=== PATIENT | female | born 1985 | race Caucasian/White ===

== ENCOUNTER 2018-04-26 10:08 | Outpatient (CLI) | payer OTHER ==
--- NOTE | 2018-04-29 09:41 | Mammography Report ---
Reason: SCREENING MAMMO Procedure Date: 04/26/2018 Accession Number: [id number] / [id number] Procedure: MGN - Screening Mammo Dig Bilat CPT Code: FULL RESULT: EXAM: Screening Mammo Dig Bilat DATE: 04/26/2018 10:24 AM CLINICAL HISTORY: Screening encounter. History of nulliparity and early menses. Family history of breast cancer in the mother at age 69. TECHNIQUE: Bilateral CC and MLO views were obtained. COMPARISON: This is the baseline mammogram. FINDINGS: The breasts demonstrate heterogeneously dense fibroglandular parenchyma bilaterally. No suspicious masses, clustered microcalcifications, or regions of architectural distortion are identified. IMPRESSION: Negative examination RECOMMENDATION: Routine annual screening unless otherwise clinically indicated. BIRADS CATEGORY 1: Negative STANDARD QUALIFYING STATEMENTS: 1. This examination was reviewed with the aid of Computer-Aided Detection (CAD). 2. A negative or benign imaging report should not preclude biopsy if clinically suspicious findings are present. 3. Dense breasts may obscure an underlying neoplasm. 4. This examination was reviewed without the aid of 3D breast imaging (tomosynthesis).
== END 2018-04-26 10:09 | disposition home or self-care (01) ==
LOC: DI.N 10:08
PROVIDERS: ATTEND Nurse Practitioner Adult Health
DX: Z12.31 Encounter for screening mammogram for malignant neoplasm of breast (principal); Z80.3 Family history of malignant neoplasm of breast
CPT/HCPCS: 77067

== ENCOUNTER 2020-05-06 10:42 | Emergency (ER) | payer OTHER ==
--- NOTE | 2020-05-06 11:14 | XRAY Report ---
PROCEDURE: Chest 1 View X-Ray INDICATIONS: Chest pain TECHNIQUE: One view of the chest was acquired. COMPARISON: None FINDINGS: Surgical changes and devices: None. Lungs and pleura: No pleural effusions or pneumothorax. Lungs are clear. Mediastinum: Mediastinal contours appear normal. Heart size is normal. Bones and chest wall: No suspicious bony lesions. Overlying soft tissues appear unremarkable. IMPRESSION: 1. No acute pulmonary process. Reviewed by: Lissy Vergara MD on 05/06/2020 11:13 AM [facility] Approved by: Lissy Vergara MD on 05/06/2020 11:13 AM [facility] Station ID: [id number]
[2020-05-06 11:20] LABS: BASOPHILS # (AUTO) 0.1 10^3/uL (0.0-0.1); BASOPHILS % (AUTO) 0.7 %; EOSINOPHILS # (AUTO) 0.1 10^3/uL (0.0-0.7); EOSINOPHILS % (AUTO) 1.6 %; HGB - HEMOGLOBIN 14.6 g/dL (12.0-16.0); LYMPHOCYTES # (AUTO) 1.9 10^3/uL (1.5-3.5); MEAN CORPUSCULAR HEMOGLOBIN 29.1 pg (27.0-31.0); MEAN CORPUSCULAR HGB CONC 33.2 g/dL (32.0-36.0); MEAN CORPUSCULAR VOLUME 87.8 fL (81.0-99.0); MEAN PLATELET VOLUME 9.7 fL (7.9-10.8); MONOCYTES # (AUTO) 0.5 10^3/uL (0.0-1.0); MONOCYTES % (AUTO) 7.2 %; NEUTROPHILS # (AUTO) 4.2 10^3/uL (1.5-6.6); NEUTROPHILS % (AUTO) 62.1 %; PLT - PLATELET COUNT 310 10^3/uL (130-450); RED BLOOD COUNT 5.01 10^6/uL (4.20-5.40); RED CELL DISTRIBUTION WIDTH 12.8 % (12.0-15.0); WHITE BLOOD COUNT 6.8 x10^3/uL (4.8-10.8)
[2020-05-06 11:31] LABS: ALBUMIN 4.2 g/dL (3.2-5.5); ALBUMIN/GLOBULIN RATIO 1.4 (1.0-2.2); BILIRUBIN,TOTAL 0.6 mg/dL (0.2-1.0); CALCIUM 9.2 mg/dL (8.5-10.3); CREATININE 0.8 mg/dL (0.4-1.0); TOTAL PROTEIN 7.2 g/dL (6.7-8.2)
[2020-05-06 11:48] LABS: RBC MORPHOLOGY (MULTIPLE) 1+ ANISOCYTOSIS (NORMAL)
--- NOTE | 2020-05-06 12:41 | ED Physician Documentation ---
History of Present Illness - Stated complaint Stated Complaint: CHEST PX - Chief complaint Chief Complaint: Cardiac - History obtained from History obtained from: Patient - Additonal information Additional information: Patient comes emergency department chief complaint of sharp pains in her right breast area on and off for the last 4 months, but getting worse. Patient denies any dyspnea on exertion. No nausea. She states that the episodes seem to come up randomly and do not seem to related to anything in particular. No exacerbation with exertion. Patient states that the current episode started last night just before she went to bed and when she woke up, she still had pain. [facility] and they told her to come here. Patient denies any history of hypertension, diabetes, or hyperlipidemia. She states that she is otherwise healthy. She is not a smoker. No history of family members with IN in 20's-40's. Patient denies any other complaints at this time. Review of Systems Ten Systems: 10 systems reviewed and negative Constitutional: reports: Reviewed and negative Eyes: reports: Reviewed and negative Ears: reports: Reviewed and negative Nose: reports: Reviewed and negative Throat: reports: Reviewed and negative Cardiac: reports: Chest pain / pressure Respiratory: reports: Reviewed and negative GI: reports: Reviewed and negative : reports: Reviewed and negative Skin: reports: Reviewed and negative Musculoskeletal: reports: Reviewed and negative Neurologic: reports: Reviewed and negative Psychiatric: reports: Reviewed and negative Endocrine: reports: Reviewed and negative Immunocompromised: reports: Reviewed and negative PD PAST MEDICAL HISTORY - Past Medical History Past Medical History: No - Present Medications Home Medications: Ambulatory Orders Medication Instructions Recorded Confirmed Levothyroxine [Synthroid] 25 mcg PO DAILY 05/06/20 05/06/20 - Allergies Allergies/Adverse Reactions: Allergies Allergy/AdvReac Type Severity Reaction Status Date / Time No Known Drug Allergies Allergy Verified 05/06/20 10:48 - Social History Does the pt smoke?: No Smoking Status: Never smoker PD ED PE NORMAL - Vitals Vital signs reviewed: Yes - General General: Alert and oriented X 3, No acute distress, Well developed/nourished - HEENT HEENT: Atraumatic, PERRL, EOMI, Moist mucous membranes - Neck Neck: Supple, no meningeal sign - Cardiac Cardiac: RRR, No murmur, Strong equal pulses, Other (Reproducible chest wall tenderness under left breast.) - Respiratory Respiratory: No respiratory distress, Clear bilaterally - Abdomen Abdomen: Soft, Non tender, Non distended - Derm Derm: Normal color, Warm and dry, No rash - Extremities Extremities: No deformity, No edema, No calf tenderness / cord - Neuro Neuro: Alert and oriented X 3, key bed installer 2-12 intact, No motor deficit, No sensory deficit, Normal speech - Psych Psych: Normal mood, Normal affect Results - Vitals Vitals: Vital Signs - 24 hr 05/06/20 05/06/20 05/06/20 10:48 11:34 12:46 Temperature 36.5 C 36.1 C L Heart Rate 76 71 90 Respiratory 18 16 16 Rate Blood Pressure 151/91 H 124/80 123/84 H O2 Saturation 99 98 100 Oxygen O2 Source Room air - EKG (time done) 1050 Rate: Rate (enter#) (76) Rhythm: NSR Becker: Normal Intervals: Normal NE QRS: Normal Ischemia: Normal ST segments. No: T wave inversion Compare to prior EKG: Old EKG unavailable Computer interpretation: Agree with computer - Labs Labs: Laboratory Tests 05/06/20 05/06/20 05/06/20 11:01 11:01 11:01 WBC 6.8 RBC 5.01 Hgb 14.6 Hct 44.0 MCV 87.8 MCH 29.1 MCHC 33.2 RDW 12.8 Plt Count 310 MPV 9.7 Neut # (Auto) 4.2 Lymph # (Auto) 1.9 Meigs # (Auto) 0.5 Eos # (Auto) 0.1 Baso # (Auto) 0.1 Absolute Nucleated RBC 0.00 Nucleated RBC % 0.0 Manual Slide Review Indicated RBC Morph Micro Appear 1+ ANISOCYTOSIS Sodium 138 Potassium 4.0 Chloride 104 Carbon Dioxide 24 Anion Gap 10.0 BUN 9 Creatinine 0.8 Estimated GFR (MDRD) 81 L Glucose 115 H Calcium 9.2 Total Bilirubin 0.6 AST 22 ALT 18 Alkaline Phosphatase 60 Troponin I High Sens < 2.3 L Total Protein 7.2 Albumin 4.2 Globulin 3.0 Albumin/Globulin Ratio 1.4 Lipase 27 - Rads (name of study) CXR Radiology: Final report received, EMP read indepedently, See rad report (NAD) PD MEDICAL DECISION MAKING - ED course Complexity details: reviewed results, re-evaluated patient, considered differential, d/w patient ED course: The patient was worked up with labs, EKG, and chest x-ray, all of which were unremarkable, including negative troponin. I discussed with the patient that overall, she is very low risk for coronary artery disease, that we have not found any further evidence of any other emergent cause of chest pain. The frances harper has gained quite a bit of truncal weight over the last year and also has very large breasts, and I have discussed with her that some of this may be contributing to the onset of these pains that she gets. I discussed with her that if she would like to close the loop on possible coronary artery disease, she could talk to her doctor about getting a stress test done. However, patient is extremely low risk and I have discussed with her that the likelihood of cardiac chest pain is low. We have discussed home management of the symptoms, as well as the usual indications for return. Departure - Departure Disposition: 01 Home, Self Care Clinical Impression: Chest pain Qualifiers: Chest pain type: unspecified Qualified Code(s): R07.9 - Chest pain, unspecified Condition: Stable Instructions: ED Chest Pain Atypical Unkn Cause Comments: Your EKG and labs look very good, as does your chest x-ray. Given the nature of your pain, as well as the tenderness over your chest wall, this is most likely to be a musculoskeletal, structural chest pain, as opposed to a pain coming from your vital organs. There is no evidence of an emergent cause of your chest pain at this time, whether cardiac or otherwise. Please schedule an appointment to follow-up with your primary care physician to discuss whether you should have any further outpatient work-up done for this. However, your pain is most likely benign. Please be sure you are wearing a very supportive bra and use anti-inflammatories as needed to help with the discomfort. Some of the discomfort may also be from the recent truncal weight gain. Please continue your plan to lose weight, as you have been doing. If you develop severe pain with shortness of breath and nausea, as well as sweating, please return to the emergency department immediately. Discharge Date/Time: 05/06/20 13:01
[2020-05-06 12:47] VITALS: BP 123/84
== END 2020-05-06 13:01 | disposition home or self-care (01) ==
LOC: ED 10:42
DX: R07.9 Chest pain, unspecified (principal)
CPT/HCPCS: 36415; 80053; 83690; 84484; 85025; 93005; 99284

== ENCOUNTER 2020-11-17 15:53 | Emergency (ER) | payer OTHER ==
--- NOTE | 2020-11-17 16:10 | ED Physician Documentation ---
PD HPI DYSPNEA - Stated complaint Stated Complaint: INHALED FB - Chief complaint Chief Complaint: General - History obtained from History obtained from: Patient - History of Present Illness Timing - onset: How many hours ago (04 09/2) Timing - onset during: Rest (she was taking a Zinc vitamin supplement tablet with water and her friend made her laugh, causing her to feel that she inhaled some water. She started coughing. Unsure if just water aspiration or if the tablet too. Persistent deep cough.) Timing - details: Abrupt onset Inciting event(s): No: URI Associated symptoms: Cough. No: Fever, Hemoptysis, Wheezing Similar symptoms before: Has not had sx before Recently seen: Not recently seen Review of Systems Constitutional: denies: Fever, Chills Nose: denies: Rhinorrhea / runny nose, Congestion Throat: denies: Sore throat Respiratory: reports: Dyspnea, Cough PD PAST MEDICAL HISTORY - Past Medical History Cardiovascular: None Respiratory: None - Present Medications Home Medications: Ambulatory Orders Medication Instructions Recorded Confirmed Levothyroxine [Synthroid] 25 mcg PO DAILY 05/06/20 11/17/20 Albuterol Sulf [Ventolin Hfa 3 - 4 puffs INH Q4HR PRN #1 inhaler 11/17/20 Inhaler] - Allergies Allergies/Adverse Reactions: Allergies Allergy/AdvReac Type Severity Reaction Status Date / Time No Known Drug Allergies Allergy Verified 11/17/20 16:01 - Social History Does the pt smoke?: No Smoking Status: Never smoker PD ED PE NORMAL - Vitals Vital signs reviewed: Yes - General General: Alert and oriented X 3, No acute distress, Well developed/nourished, Other (having frequent deep cough. No stridor nor wheezing noted. ) - HEENT HEENT: Pharynx benign - Neck Neck: Supple, no meningeal sign, No adenopathy, Thyroid normal - Cardiac Cardiac: RRR, No murmur - Respiratory Respiratory: Clear bilaterally - Derm Derm: Normal color, Warm and dry Results - Vitals Vitals: Vital Signs - 24 hr 11/17/20 11/17/20 11/17/20 15:56 16:49 18:01 Temperature 35.6 C L 36.5 C Heart Rate 82 75 75 Respiratory 16 12 16 Rate Blood Pressure 132/110 H 138/90 H O2 Saturation 98 99 Oxygen O2 Source Room air - Rads (name of study) CXR including neck Radiology: Prelim report reviewed (no FB noted), See rad report PD MEDICAL DECISION MAKING - ED course Complexity details: re-evaluated patient (improved with neb treatment and Benadryl liquid PO. CXR clear. ), considered differential (no stridor, normal voice. Having repetitive cough, and so presume irritated but not seeming FB per se. Since Zinc is metal salt, should be more likely visible on plain xray. ), d/w patient Departure - Departure Disposition: 01 Home, Self Care Clinical Impression: Aspiration of fluid as the cause of abnormal reaction of patient, or of later complication Condition: Stable Record reviewed to determine appropriate education?: Yes Prescriptions: Albuterol Sulf [Ventolin Hfa Inhaler] 3 - 4 puffs INH Q4HR PRN #1 inhaler PRN Reason: Shortness Of Air/Wheezing Comments: Your xray does not show any obvious zinc tablets in the upper airway. Given that it is a metal salt that typically would be visible, I think it safe to say there is not a foreign body but just some irritation from aspirated water. As such I would anticipate this improving over the next day or 2. You can use some Benadryl liquid periodically to help any throat irritation. Otherwise the albuterol inhaler to help with any airway spasming and reduce coughing. Recheck if not fully improved over the next 2 to 3 days. Discharge Date/Time: 11/17/20 18:01
[2020-11-17] MEDS: diphenhydrAMINE ELIXIR 25 MG/10 ML UDC PO STA (16:42)
[2020-11-17] MEDS: LIDOCAINE VISCOUS 2% 15 ML UDC MM STA (16:42)
[2020-11-17] MEDS: ALBUTEROL NEB 2.5 MG/3 ML INH STA (16:49)
--- NOTE | 2020-11-17 17:00 | XRAY Report ---
PROCEDURE: Chest 1 View X-Ray INDICATIONS: POSSIBLE ASPIRATED ZINC TABLET, PERSISTENT COUGH TECHNIQUE: One view of the chest was acquired. COMPARISON: CXR 04/28/2020. FINDINGS: Surgical changes and devices: None. Lungs and pleura: No pleural effusions or pneumothorax. Lungs appear clear. No radiopaque foreign b aureliano seen. Mediastinum: Mediastinal contours appear normal. Heart size is normal. Bones and chest wall: No suspicious bony lesions. Overlying soft tissues appear unremarkable. IMPRESSION: No acute cardiopulmonary abnormality identified. Reviewed by: Darion Chávez MD on 11/17/2020 4:59 PM PDT Approved by: Darion Chávez MD on 11/17/2020 4:59 PM PDT Station ID: [id number]
[2020-11-17 18:02] VITALS: BP 138/90
== END 2020-11-17 18:01 | disposition home or self-care (01) ==
LOC: ED 15:53
DX: T17.890A Other foreign object in other parts of respiratory tract causing asphyxiation, initial encounter (principal); X58.XXXA Exposure to other specified factors, initial encounter
CPT/HCPCS: 71045; 94640; 94664; 99283; 99284; A9270

== ENCOUNTER 2021-04-20 01:18 | Outpatient (CLI) | payer OTHER, BC | END 2021-04-20 01:19 | disposition short-term general hospital (02) | LOC: EMS 01:18 | DX: R42 Dizziness and giddiness (principal); R07.89 Other chest pain; R11.0 Nausea; R06.00 Dyspnea, unspecified | CPT/HCPCS: A0425; A0429 ==

== ENCOUNTER 2021-05-12 13:48 | Emergency (ER) | payer BC, OTHER ==
[2021-05-12 14:15] LABS: BASOPHILS % (AUTO) 0.5 %; EOSINOPHILS % (AUTO) 0.6 %; HCT - HEMATOCRIT 43.3 % (37.0-47.0); HGB - HEMOGLOBIN 14.4 g/dL (12.0-16.0); LYMPHOCYTES # (AUTO) 1.3 10^3/uL (1.5-3.5); LYMPHOCYTES % (AUTO) 21.6 %; MEAN CORPUSCULAR HEMOGLOBIN 29.1 pg (27.0-31.0); MEAN CORPUSCULAR HGB CONC 33.3 g/dL (32.0-36.0); MEAN CORPUSCULAR VOLUME 87.5 fL (81.0-99.0); MEAN PLATELET VOLUME 10.4 fL (7.9-10.8); MONOCYTES # (AUTO) 0.4 10^3/uL (0.0-1.0); MONOCYTES % (AUTO) 6.3 %; NEUTROPHILS # (AUTO) 4.4 10^3/uL (1.5-6.6); NEUTROPHILS % (AUTO) 70.7 %; PLT - PLATELET COUNT 259 10^3/uL (130-450); RED BLOOD COUNT 4.95 10^6/uL (4.20-5.40); RED CELL DISTRIBUTION WIDTH 13.7 % (12.0-15.0); WHITE BLOOD COUNT 6.2 x10^3/uL (4.8-10.8)
[2021-05-12 14:32] LABS: ALBUMIN 4.4 g/dL (3.2-5.5); ALBUMIN/GLOBULIN RATIO 1.6 (1.0-2.2); BILIRUBIN,TOTAL 0.7 mg/dL (0.2-1.0); CALCIUM 9.2 mg/dL (8.5-10.3); CREATININE 0.8 mg/dL (0.4-1.0); POTASSIUM 3.7 mmol/L (3.5-5.0); TOTAL PROTEIN 7.2 g/dL (6.7-8.2)
--- NOTE | 2021-05-12 14:37 | XRAY Report ---
PROCEDURE: Chest 1 View X-Ray INDICATIONS: Chest pain TECHNIQUE: One view of the chest was acquired. COMPARISON: 11/17/2020. FINDINGS: Surgical changes and devices: None. Lungs and pleura: No pleural effusions or pneumothorax. Lungs are clear. Mediastinum: Mediastinal contours appear normal. Heart size is normal. Bones and chest wall: No suspicious bony lesions. Overlying soft tissues appear unremarkable. IMPRESSION: No acute cardiopulmonary process demonstrated radiographically. Reviewed by: Benton Ervin MD on 05/12/2021 2:35 PM PST Approved by: Benton Ervin MD on 05/12/2021 2:35 PM PST Station ID: [id number]
[2021-05-12 17:28] VITALS: BP 130/80
--- NOTE | 2021-05-12 17:36 | ED Physician Documentation ---
PD HPI CHEST PAIN - Stated complaint Stated Complaint: CHEST PAINS - Chief complaint Chief Complaint: Cardiac - History obtained from History obtained from: Patient - History of Present Illness Timing - onset: How many days ago (10) Timing - onset during: Rest Timing - duration: Days (10) Timing - details: Gradual onset, Still present, Waxing and waning Quality: Pressure, Sharp, Pain Location: Substernal, Left chest Radiation: Left upper extremity. No: Jaw, Neck Improved by: Rest Worsened by: Inspiration, Movement, Palpation, Position Associated symptoms: Feeling faint / dizzy. No: Shortness of air, Diaphoresis, Nausea, Vomiting Similar symptoms before: Has not had sx before Recently seen: Clinic, Emergency Dept - Additional information Additional information: 35-year-old female who developed a viral gastroenteritis about 2 weeks ago and had some nausea and vomiting subsequently developed some pain in her left lateral chest wall and she had some radiation of this pain up into her left arm and left breast and was seen in the emergency department at [facility] and at [place]. She has been in to see her primary care doctor as well and a CT scan of the abdomen pelvis is scheduled. The patient has persistence of this pain in the left lateral chest wall that is tender specifically to palpation and hurts with coughing and breathing. She is also developed pain in the anterior chest that is similarly tender to palpation and hurts worse with coughing and breathing. Review of Systems Constitutional: denies: Fever, Chills Eyes: denies: Decreased vision Ears: denies: Ear pain Nose: denies: Congestion Throat: denies: Sore throat Cardiac: reports: Chest pain / pressure. denies: Palpitations, Pedal edema, Calf pain Respiratory: reports: Cough. denies: Dyspnea, Wheezing GI: reports: Nausea (resolved), Vomiting (resolved). denies: Abdominal Pain : denies: Dysuria, Frequency Skin: denies: Rash Musculoskeletal: reports: Back pain, Extremity pain (resolved). denies: Neck pain Neurologic: denies: Generalized weakness, Focal weakness, Numbness PD PAST MEDICAL HISTORY - Past Medical History Cardiovascular: None Respiratory: None - Present Medications Home Medications: Ambulatory Orders Medication Instructions Recorded Confirmed Levothyroxine [Synthroid] 25 mcg PO DAILY 05/06/20 11/17/20 Albuterol Sulf [Ventolin Hfa 3 - 4 puffs INH Q4HR PRN #1 inhaler 11/17/20 Inhaler] - Allergies Allergies/Adverse Reactions: Allergies Allergy/AdvReac Type Severity Reaction Status Date / Time No Known Drug Allergies Allergy Verified 05/12/21 14:05 - Social History Does the pt smoke?: No Smoking Status: Never smoker PD ED PE NORMAL - Vitals Vital signs reviewed: Yes (hypertensive mild ) - General General: Alert and oriented X 3, No acute distress, Well developed/nourished - HEENT HEENT: Atraumatic, PERRL, EOMI - Neck Neck: Supple, no meningeal sign, No bony TTP - Cardiac Cardiac: RRR, No murmur - Respiratory Respiratory: No respiratory distress, Clear bilaterally, Other (chest wall point tenderness to the lateral chest wall on the left side. Specific to ribs and reproducible. Similar tenderness to the anterior chest wall over the sternocosal joints. ) - Abdomen Abdomen: Normal bowel sounds, Soft, Non tender, No organomegaly, Other (There is no tenderness to bimanual palpation of the left kidney and no abdominal pain. 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, No motor deficit, No sensory deficit, Normal speech Eye Opening: Spontaneous Motor: Obeys Commands Verbal: Oriented GCS Score: 15 - Psych Psych: Normal mood, Normal affect Results - Vitals Vitals: Vital Signs - 24 hr 05/12/21 05/12/21 14:00 17:28 Temperature 36.2 C L 36.5 C Heart Rate 78 76 Respiratory 18 16 Rate Blood Pressure 135/83 H 130/80 O2 Saturation 100 100 Oxygen O2 Source Room air - EKG (time done) 1358 Rate: Rate (enter#) (75) Ischemia: Normal ST segments Compare to prior EKG: Unchanged from prior EKG (SPT 05-06-20 no changes) Computer interpretation: Agree with computer - Labs Labs: Laboratory Tests 05/12/21 05/12/21 05/12/21 14:11 14:11 14:11 WBC 6.2 RBC 4.95 Hgb 14.4 Hct 43.3 MCV 87.5 MCH 29.1 MCHC 33.3 RDW 13.7 Plt Count 259 MPV 10.4 Neut # (Auto) 4.4 Lymph # (Auto) 1.3 L Archer # (Auto) 0.4 Eos # (Auto) 0.0 Baso # (Auto) 0.0 Absolute Nucleated RBC 0.00 Nucleated RBC % 0.0 Sodium 134 L Potassium 3.7 Chloride 102 Carbon Dioxide 23 Anion Gap 9.0 BUN 6 Creatinine 0.8 Estimated GFR (MDRD) 81 L Glucose 106 H Calcium 9.2 Total Bilirubin 0.7 AST 16 ALT 21 Alkaline Phosphatase 55 Troponin I High Sens < 2.3 L Total Protein 7.2 Albumin 4.4 Globulin 2.8 Albumin/Globulin Ratio 1.6 Lipase 34 - Rads (name of study) chest Radiology: Prelim report reviewed (Impression: No acute cardiopulmonary process demonstrated radiographically.), EMP read indepedently (Very clear chest), See rad report PD MEDICAL DECISION MAKING - ED course Complexity details: reviewed old records, reviewed results, re-evaluated patient, considered differential, d/w patient ED course: 35-year-old female with chest wall pain appears to have costochondritis likely related to strain from vomiting or coughing. She has been having symptoms for 10 days has a very specific point tenderness reproducible and reproduces the symptoms she has having by compression of the chest wall laterally and anteriorly. Studies involving her blood work chest x-ray and electrocardiogram are all without specific diagnosis and normal. I discussed with the patient the nature of costochondritis the multiple causes of costochondritis from chest wall strain of any type and a delay in onset of symptoms from the initial insult. The patient has come to the emergency department because she has pain in her chest and was told to come to the emergency department. She is concerned about her heart. There is no evidence of involvement of the myocardium. Here in the emergency department patient is treated with 10 mg of dexamethasone and 60 mg of Toradol IM. I discussed with the patient treatment to include the use of ibuprofen to be taken with food and a period of time. Departure - Departure Disposition: 01 Home, Self Care Clinical Impression: Costochondritis, acute Condition: Stable Instructions: ED Chest Pain Costochondritis Follow-Up: STEFFEN DENNIS PA-C [Primary Care Provider] - Comments: Delia, today it looks like the pain you are having in your side and in your chest are chest wall pain. This usually happens from a strain of the chest wall from any 1 of a variety of reasons including coughing and vomiting. The expectation is a resolution of this pain within the next week. The mainstay of treatment for this type of pain is an anti-inflammatory usually ibuprofen or Aleve. If you take these medications take them with food as they irritate the lining of everyone's stomach. Follow-up with your primary care doctor.
[2021-05-12] MEDS ORDERED: DEXAMETHASONE 10 MG/ML VIAL PO STA (17:52)
[2021-05-12] MEDS ORDERED: CHERRY SYRUP 10 ML UDC PO ONE (17:52)
[2021-05-12] MEDS ORDERED: KETOROLAC 60 MG/2 ML VIAL IM STA (17:52)
== END 2021-05-12 18:17 | disposition home or self-care (01) ==
LOC: ED 13:48
DX: M94.0 Chondrocostal junction syndrome [Tietze] (principal)
CPT/HCPCS: 36415; 71045; 80053; 83690; 84484; 85025; 93005; 96372; 99284; A9270

== ENCOUNTER 2021-05-18 16:06 | Outpatient (CLI) | payer BC ==
--- NOTE | 2021-05-18 18:11 | CT Report ---
PROCEDURE: Abdomen/Pelvis WO INDICATIONS: LEFT UPPER QUAD PAIN TECHNIQUE: Noncontrast 5 mm thick sections acquired from the diaphragms to the symphysis. 5 mm coronal and sagi ttal reformats were then performed. For radiation dose reduction, the following was used: automated exposure control, adjustment of mA and/or kV according to patient size. COMPARISON: None. FINDINGS: Image quality: This study is limited by body habitus. ABDOMEN: Lung bases: Lung bases are clear. Heart size is normal. Solid organs: The liver overall is mildly prominent in size. No focal suspicious liver lesions are s een to the limits of noncontrast CT. Within the right liver, there is a focus of calcification seen, as on series 3 image 27 that measures 4 mm, which is considered to be benign. The spleen demonstrates normal size and demonstrates no significant abnormality. Gallbladder wall does not appear thickened. Pancreas is normal in contours. No adrenal nodules. Kidneys are normal in size, without hydronephrosis or nephrolithiasis. Peritoneum and bowel: Unenhanced bowel loops demonstrate normal wall thickness and caliber. Scrutin y is given to the splenic flexure of the colon demonstrates no significant abnormality. No free fluid or air. A normal appendix is incidentally noted. Nodes and vessels: No retroperitoneal or mesenteric adenopathy by size criteria. Aorta and inferior vena cava are normal in caliber. Miscellaneous: No ventral hernias. PELVIS: Genitourinary: Bladder wall thickness is normal. The uterus demonstrates an unremarkable appearance for age. No adnexal masses are seen. Miscellaneous: No inguinal hernias or adenopathy. Bones: No suspicious bony lesions. No vertebral body compression fractures. IMPRESSION: No imaging explanation is found for the patient's presenting symptoms. The spleen and th e splenic flexure of the colon demonstrate no significant abnormality. Negative for kidney stones or obstructive uropathy. Incidental note is made of: Benign-appearing focal liver calcification Normal appendix Reviewed by: Rocky Mckeon MD on 05/18/2021 5:10 PM [place] Approved by: Rocky Mckeon MD on 05/18/2021 5:10 PM [place] Station ID: [id number]
== END 2021-05-18 16:07 | disposition home or self-care (01) ==
LOC: DI 16:06
PROVIDERS: ATTEND Internal Medicine
DX: R10.12 Left upper quadrant pain (principal)

== ENCOUNTER 2021-05-26 20:37 | Emergency (ER) | payer BC, OTHER ==
[2021-05-26 20:58] LABS: BASOPHILS % (AUTO) 0.4 %; EOSINOPHILS # (AUTO) 0.1 10^3/uL (0.0-0.7); EOSINOPHILS % (AUTO) 0.9 %; HCT - HEMATOCRIT 44.2 % (37.0-47.0); HGB - HEMOGLOBIN 14.7 g/dL (12.0-16.0); LYMPHOCYTES # (AUTO) 2.6 10^3/uL (1.5-3.5); LYMPHOCYTES % (AUTO) 25.8 %; MEAN CORPUSCULAR HEMOGLOBIN 28.8 pg (27.0-31.0); MEAN CORPUSCULAR HGB CONC 33.3 g/dL (32.0-36.0); MEAN CORPUSCULAR VOLUME 86.5 fL (81.0-99.0); MEAN PLATELET VOLUME 10.6 fL (7.9-10.8); MONOCYTES # (AUTO) 0.6 10^3/uL (0.0-1.0); MONOCYTES % (AUTO) 5.9 %; NEUTROPHILS # (AUTO) 6.6 10^3/uL (1.5-6.6); NEUTROPHILS % (AUTO) 66.6 %; PLT - PLATELET COUNT 299 10^3/uL (130-450); RED BLOOD COUNT 5.11 10^6/uL (4.20-5.40); RED CELL DISTRIBUTION WIDTH 13.6 % (12.0-15.0); WHITE BLOOD COUNT 9.9 x10^3/uL (4.8-10.8)
[2021-05-26 21:14] LABS: ALBUMIN 4.4 g/dL (3.2-5.5); ALBUMIN/GLOBULIN RATIO 1.7 (1.0-2.2); BILIRUBIN,TOTAL 0.6 mg/dL (0.2-1.0); CALCIUM 9.5 mg/dL (8.5-10.3); CREATININE 0.8 mg/dL (0.4-1.0); POTASSIUM 3.7 mmol/L (3.5-5.0)
[2021-05-26 21:36] LABS: BILIRUBIN,URINE NEGATIVE (NEGATIVE); CLARITY,URINE CLEAR (CLEAR); GLUCOSE, URINE (UA) NEGATIVE (NEGATIVE); KETONES,URINE (UA) NEGATIVE (NEGATIVE); LEUKOCYTE ESTERASE, URINE NEGATIVE (NEGATIVE); NITRITE,URINE NEGATIVE (NEGATIVE); OCCULT BLOOD,URINE NEGATIVE (NEGATIVE); PH,URINE 7.5 PH (5.0-7.5); PROTEIN,URINE NEGATIVE (NEGATIVE); UROBILINOGEN,URINE 0.2 (NORMAL) E.U./dL (NORMAL)
--- NOTE | 2021-05-26 22:11 | ED Physician Documentation ---
PD HPI ABD PAIN - Stated complaint Stated Complaint: LT SIDE PX/NAUSEA - Chief complaint Chief Complaint: Abd Pain - History obtained from History obtained from: Patient - History of Present Illness Timing - onset: How many weeks ago (3) Timing - details: Abrupt onset, Intermittant, Waxing and waning Pain level now: 7 Quality: Sharp Location: All over / everywhere (predominantly left sided, mostly LUQ) Radiation: Other (radiates to left flank) Improved by: Other (no ameliorating factors) Worsened by: Position (lying left side decubitus) Associated symptoms: Nausea, Vomiting. No: Fever, Hematemesis, Diarrhea, Constipation, Dysuria, Hematuria Similar symptoms before: No diagnosis Recently seen: Emergency Dept - Additional information Additional information: c/o 3 weeks of abdominal pain, left sided with seemingly two components: left UQ and left flank x 3 weeks, and sharp left lower flank and LLQ pain since earlier tonight. She was T+R 2/ for similar c/o, w/u including CT A/P which was unremarkable for acute/ concerning findings. She has appointment with PMD tomorrow to discuss CT results. Review of Systems Constitutional: reports: Reviewed and negative Cardiac: reports: Reviewed and negative Respiratory: reports: Reviewed and negative GI: reports: Abdominal Pain, Nausea, Vomiting. denies: Abdominal Swelling, Constipation, Diarrhea : denies: Dysuria, Frequency, Now EGA PD PAST MEDICAL HISTORY - Past Medical History Past Medical History: Yes Cardiovascular: None Respiratory: None Endocrine/Autoimmune: Other Other Past Medical History: Shaw's - Past Surgical History Past Surgical History: Yes Ortho: Other - Present Medications Home Medications: Ambulatory Orders Medication Instructions Recorded Confirmed Levothyroxine [Synthroid] 50 mcg PO DAILY 05/06/20 05/26/21 Albuterol Sulf [Ventolin Hfa 3 - 4 puffs INH Q4HR PRN #1 inhaler 11/17/20 Inhaler] Esomeprazole Magnesium 20 mg PO DAILY #14 tab 05/27/21 - Allergies Allergies/Adverse Reactions: Allergies Allergy/AdvReac Type Severity Reaction Status Date / Time No Known Drug Allergies Allergy Verified 05/26/21 20:40 - Social History Does the pt smoke?: No Smoking Status: Never smoker PD ED PE NORMAL - Vitals Vital signs reviewed: Yes - General General: Alert and oriented X 3, No acute distress, Well developed/nourished - Neck Neck: Supple, no meningeal sign - Cardiac Cardiac: RRR, No murmur, No gallop, No rub - Respiratory Respiratory: No respiratory distress, Clear bilaterally - Abdomen Abdomen: Soft, Non distended, Other (mild TTP LUQ and LLQ without rebound or guarding, no masses) - Back Back: No CVA TTP - Derm Derm: No rash Results - Vitals Vitals: Oxygen O2 Source Room air - Labs Labs: Laboratory Tests 05/26/21 05/26/21 05/26/21 20:52 20:52 21:30 WBC 9.9 RBC 5.11 Hgb 14.7 Hct 44.2 MCV 86.5 MCH 28.8 MCHC 33.3 RDW 13.6 Plt Count 299 MPV 10.6 Neut # (Auto) 6.6 Lymph # (Auto) 2.6 [place] # (Auto) 0.6 Eos # (Auto) 0.1 Baso # (Auto) 0.0 Absolute Nucleated RBC 0.00 Nucleated RBC % 0.0 Sodium 136 Potassium 3.7 Chloride 103 Carbon Dioxide 23 Anion Gap 10.0 BUN 8 Creatinine 0.8 Estimated GFR (MDRD) 81 L Glucose 109 H Calcium 9.5 Total Bilirubin 0.6 AST 17 ALT 24 Alkaline Phosphatase 60 Total Protein 7.0 Albumin 4.4 Globulin 2.6 Albumin/Globulin Ratio 1.7 Lipase 34 Urine Color YELLOW Urine Clarity CLEAR Urine pH 7.5 Ur Specific [place] 1.015 Urine Protein NEGATIVE Urine Glucose (UA) NEGATIVE Urine Ketones NEGATIVE Urine Occult Blood NEGATIVE Urine Nitrite NEGATIVE Urine Bilirubin NEGATIVE Urine Urobilinogen 0.2 (NORMAL) Ur Leukocyte Esterase NEGATIVE Ur Microscopic Review NOT INDICATED Urine Culture Comments NOT INDICATED Urine HCG, Qual 05/26/21 21:30 WBC RBC Hgb Hct MCV MCH MCHC RDW Plt Count MPV Neut # (Auto) Lymph # (Auto) [place] # (Auto) Eos # (Auto) Baso # (Auto) Absolute Nucleated RBC Nucleated RBC % Sodium Potassium Chloride Carbon Dioxide Anion Gap BUN Creatinine Estimated GFR (MDRD) Glucose Calcium Total Bilirubin AST ALT Alkaline Phosphatase Total Protein Albumin Globulin Albumin/Globulin Ratio Lipase Urine Color Urine Clarity Urine pH Ur Specific [place] Urine Protein Urine Glucose (UA) Urine Ketones Urine Occult Blood Urine Nitrite Urine Bilirubin Urine Urobilinogen Ur Leukocyte Esterase Ur Microscopic Review Urine Culture Comments Urine HCG, Qual NEGATIVE - Rads (name of study) pelvic US Radiology: Prelim report reviewed, See rad report PD MEDICAL DECISION MAKING - ED course Complexity details: reviewed old records, reviewed results, re-evaluated patient, considered differential, d/w patient ED course: unremarkable testing tonight including blood tests and UA. CT A/P was performed 05/18 and no concerning findings on that study; repeating CT is not indicated at this time. Given that she has developed a left lower abdominal/left anterior pelvic discomfort tonight, a pelvic US was undertaken; this revealed uterine fibroids and a right-sided mass most likely another fibroid, but would benefit from further study for better characterization. Results d/w patient. The fibroids could explain some of the symptoms, though it seems unlikely given their location and size (small left sided fibroid would correlate with symptoms but it is subserosal and small in dimension; large fibroid is posterior, while pain is limited to left side of pelvis/abdomen). she is given IV NS as well as toradol and protonix. She declines further analgesics. The upper abdominal discomfort, with n/v, raises PUD/gastritis on differential, will trial 2 weeks on PPI. Return precautions reviewed, instructed to follow up with primary care provider. Departure - Departure Disposition: Home, Self Care Clinical Impression: Abdominal pain Qualifiers: Abdominal location: generalized Qualified Code(s): R10.84 - Generalized abdominal pain Condition: Good Instructions: ED Abdominal Pain Female Non-Specific Abdominal Pain, ED Fibroids Follow-Up: Michael Roca MD [Provider Admit Priv/Credential] - Prescriptions: Esomeprazole Magnesium 20 mg PO DAILY #14 tab Comments: The cause of your symptoms is not clear at this time. Your blood tests and urinalysis results are unremarkable. The ultrasound does show fibroids, and these can cause pain and might explain some of the symptoms (typically pelvic pain). The ultrasound reading also mentions a right-sided pelvic mass that is suspected to also be a fibroid, but you should follow up with staff technologist for these findings; further study might be needed. As we discussed, some of your symptoms would be typical for an ulcer or gastritis, but these diagnoses do not show up on tests performed in the emergency department. An acid-blocking medication has been prescribed, as this can help reduce or eliminate symptoms caused by gastritis or ulcer. If the symptoms persist, sometimes another study is needed (upper endoscopy). The prescription (esomeprazole) has been electronically submitted to [facility] pharmacy in [place]. Discharge Date/Time: 05/27/21 03:21
[2021-05-26] MEDS ORDERED: PANTOPRAZOLE 40 MG VIAL IVP STA (23:01)
[2021-05-26] MEDS ORDERED: SODIUM CHLORIDE 0.9% 1,000 ML IV STA (23:01)
[2021-05-26] MEDS ORDERED: KETOROLAC 30 MG/ML VIAL IVP STA (23:01)
--- NOTE | 2021-05-27 01:52 | Ultrasound Report ---
PROCEDURE: Pelvic w/Transvag+Doppler Comp INDICATIONS: left pelvic pain TECHNIQUE: Real-time scanning was performed of the pelvic organs, with image documentation. Additional endovagi nal scanning was necessary due to incomplete visualization of the adnexal and endometrial structures by transabdominal scanning. COMPARISON: CT abdomen and pelvis without contrast, 05/18/2021. FINDINGS: No pathologic free abdominal or pelvic fluid. Uterus: Uterus is anteverted measuring 9.5 x 7.3 x 4.3 cm. The endometrium measures 10.6 mm in comb ined thickness. A 3.2 x 3.1 x 2.9 cm subserosal fibroid is seen in the anterior left uterine wall. Ovaries: Right ovaries not visualized. Left ovary measures 2.1 x 1.2 x 1.7 cm with at least 3 sodium of 2.2 cc. There is positive vascularity to left ovary. IMPRESSION: 1. Myomatous uterus with a 3.2 x 3.1 x 2.9 cm subserosal fibroid in the anterior left uterine wall. 2. Left ovary is grossly normal. Nonvisualization of the right ovary. 3. No pathological free fluid in pelvis. Reviewed by: Kristian Pires MD on 05/27/2021 1:50 AM PST Approved by: Kristian Pires MD on 05/27/2021 1:50 AM PST Station ID: [id number]
[2021-05-27 02:08] LABS: HCG UR QUAL NEGATIVE
[2021-05-27 03:15] VITALS: BP 104/68
== END 2021-05-27 03:21 | disposition home or self-care (01) ==
LOC: ED 20:37
DX: R10.84 Generalized abdominal pain (principal)
CPT/HCPCS: 36415; 80053; 81001; 81003; 81025; 83690; 85025; 87086; 93975; 96361; 96374; 96375; 99284